=== PATIENT | female | born 1980 | race Two or more races ===

== ENCOUNTER 2017-07-24 22:24 | Emergency (ER) | payer SELFPAY ==
[2017-07-25 00:17] LABS: ABSOLUTE BASOPHILS # (AUTO) 0.1 10^3/uL (0.0-0.2); ABSOLUTE EOSINOPHILS # (AUTO) 0.1 10^3/uL (0.0-0.6); ABSOLUTE LYMPHOCYTES (AUTO) 1.9 10^3/uL (0.5-4.7); ABSOLUTE MONOCYTES (AUTO) 0.6 10^3/uL (0.1-1.4); BASOPHILS % (AUTO) 0.9 % (0-2); EOSINOPHILS % (AUTO) 0.9 % (0-6); HEMATOCRIT 44.2 % (36.0-47.0); LYMPHOCYTES % (AUTO) 29.5 % (13-45); MEAN CORPUSCULAR HEMOGLOBIN 32.7 pg (27.0-33.4); MEAN CORPUSCULAR HGB CONC 33.9 g/dL (32.0-36.0); MEAN CORPUSCULAR VOLUME 97 fl (80-97); MONOCYTES % (AUTO) 8.5 % (3-13); PLATELET COUNT 221 10^3/uL (150-450); RED BLOOD COUNT 4.57 10^6/uL (3.72-5.28); RED CELL DISTRIBUTION WIDTH 12.2 % (11.5-14.0); SEGMENTED NEUTROPHILS % (AUTO) 60.2 % (42-78); TOTAL CELLS COUNTED % (AUTO) 100 %; WHITE BLOOD COUNT 6.6 10^3/uL (4.0-10.5)
[2017-07-25 00:31] LABS: APPEARANCE,URINE CLEAR; BILIRUBIN,URINE NEGATIVE (NEGATIVE); COLOR,URINE YELLOW; GLUCOSE, URINE NEGATIVE (NEGATIVE); KETONES,URINE NEGATIVE (NEGATIVE); LEUKOCYTE ESTERASE,URINE NEGATIVE (NEGATIVE); NITRITE,URINE NEGATIVE (NEGATIVE); PROTEIN,URINE NEGATIVE (NEGATIVE); URINE SPECIFIC GRAVITY 1.013; UROBILINOGEN,URINE NEGATIVE mg/dL (<2.0)
[2017-07-25 00:35] LABS: ALANINE AMINOTRANSFERASE 28 U/L (9-52); ALBUMIN 4.9 g/dL (3.5-5.0); ALKALINE PHOSPHATASE 52 U/L (38-126); ANION GAP 13 (5-19); ASPARTATE AMINO TRANSFERASE 17 U/L (14-36); BILIRUBIN,DIRECT 0.2 mg/dL (0.0-0.4); BILIRUBIN,TOTAL 0.7 mg/dL (0.2-1.3); BLOOD UREA NITROGEN 10 mg/dL (7-20); CALCIUM 9.8 mg/dL (8.4-10.2); CARBON DIOXIDE 26 mmol/L (22-30); CHLORIDE 104 mmol/L (98-107); GLUCOSE 87 mg/dL (75-110); LIPASE 65.8 U/L (23-300); POTASSIUM 4.1 mmol/L (3.6-5.0); SODIUM 142.6 mmol/L (137-145); TOTAL PROTEIN 7.1 g/dL (6.3-8.2)
[2017-07-25] MEDS ORDERED: OXYCODONE-ACETAMINOPHEN 5-325 MG TABLET PO ONE (01:55)
[2017-07-25] MEDS ORDERED: PROMETHAZINE HCL 25 MG TABLET PO ONE (01:55)
--- NOTE | 2017-07-25 01:56 | ER Document Report ---
ED GI/ - General Chief Complaint: Abdominal Pain Stated Complaint: ABOMINAL PAIN Time Seen by Provider: 07/25/17 01:35 Notes: Patient is a 36-year-old female that comes emergency department for chief complaint of pelvic pain that has been sharp and intermittent for the past week , she states that intermittently will improve and then worsened again tonight. She denies vomiting, she reports some radiation to her lower back but not back, she denies fever or chills, vaginal discharge, dysuria. She has an IUD. She does not have history of stones or cyst. Patient also complains of generalized fatigue. She states she feels like she is . - Related Data Allergies/Adverse Reactions: No Known Allergies Allergy (Unverified 07/24/17 22:25) Past Medical History - General Information source: Patient - Social History Smoking Status: Never Smoker Chew tobacco use (# tins/day): No Frequency of alcohol use: None Drug Abuse: None Lives with: Family Family History: Reviewed & Not Pertinent Patient has suicidal ideation: No Patient has homicidal ideation: No - Medical History Medical History: Negative Renal/ Medical History: Denies: Hx Peritoneal Dialysis Surgical Hx: Negative - Immunizations Immunizations up to date: Yes Hx Diphtheria, Pertussis, Tetanus Vaccination: Yes Review of Systems - Review of Systems Constitutional: No symptoms reported EENT: No symptoms reported Cardiovascular: No symptoms reported Respiratory: No symptoms reported Gastrointestinal: See HPI Genitourinary: See HPI Female Genitourinary: See HPI Musculoskeletal: No symptoms reported Skin: No symptoms reported Hematologic/Lymphatic: No symptoms reported Neurological/Psychological: No symptoms reported Physical Exam - Vital signs Vitals: Temp Pulse Resp BP Pulse Ox 98.3 F 73 12 112/64 100 07/24/17 22:34 07/24/17 22:34 07/24/17 22:34 07/24/17 22:34 07/24/17 22:34 Interpretation: Normal - General General appearance: Appears well, Alert - HEENT Head: Normocephalic, Atraumatic Eyes: Normal Pupils: PERRL - Respiratory Respiratory status: No respiratory distress Chest status: Nontender Breath sounds: Normal Chest palpation: Normal - Cardiovascular Rhythm: Regular Heart sounds: Normal auscultation Murmur: No - Abdominal Inspection: Normal Distension: No distension Bowel sounds: Normal Tenderness: Tender - Minimal generalized lower abdominal tenderness, nonspecific , no guarding, no rigidity, no rebound tenderness Organomegaly: No organomegaly - Back Back: Normal, Nontender - Extremities General upper extremity: Normal inspection, Nontender, Normal color, Normal ROM , Normal temperature General lower extremity: Normal inspection, Nontender, Normal color, Normal ROM , Normal temperature, Normal weight bearing. No: Payam's sign - Neurological Neuro grossly intact: Yes Cognition: Normal Orientation: AAOx4 Hamilton Coma Scale Eye Opening: Spontaneous Hamilton Coma Scale Verbal: Oriented Hamilton Coma Scale Motor: Obeys Commands Hamilton Coma Scale Total: 15 Speech: Normal Motor strength normal: LUE, RUE, LLE, RLE Sensory: Normal - Psychological Associated symptoms: Normal affect, Normal mood - Skin Skin Temperature: Warm Skin Moisture: Dry Skin Color: Normal Course - Re-evaluation Re-evalutation: Patient well-appearing on exam, unremarkable exam with only minimal generalized lower abdominal tenderness. Unremarkable vital signs. CBC, chemistry, urinalysis, hCG are all unremarkable and negative. Ultrasound performed, shows normal IUD placement, no free fluid or overt abnormalities. TSH is in the normal range. Discussed with patient, she declined a pelvic exam, I do suspect based on her symptoms that this is most likely a bowel source but no evidence of acute abdomen on exam or workup. Discussed recommendations, follow-up with GI, return precautions. Patient and significant other state satisfaction and agreement. - Vital Signs Vital signs: Temp Pulse Resp BP Pulse Ox 98.4 F 76 16 110/70 100 07/25/17 03:53 07/25/17 03:53 07/25/17 03:53 07/25/17 03:53 07/25/17 03:53 - Laboratory Result Diagrams: 07/24/17 23:58 07/24/17 23:58 Discharge - Discharge Clinical Impression: Lower abdominal pain Condition: Stable Disposition: HOME, SELF-CARE Additional Instructions: Your laboratory workup including blood counts, urine, and thyroid screening tests are normal. Your ultrasound shows the IUD in appropriate position with no obvious abnormalities in the pelvis. I suspect that your symptoms are coming from your bowel. I recommend that you take the Colace for the next 3 days or so, take the Bentyl if needed for pain, if symptoms continue follow-up with the gastroenterology referral. Return if you worsen including severe worsening pain, vomiting, temperature 100.4 or greater, swelling/distention of the abdomen, bleeding, or any other concerning symptoms. Prescriptions: Dicyclomine HCl [Bentyl 20 mg Tablet] 20 mg PO QID PRN #40 tablet PRN Reason: Docusate Sodium [Colace 100 mg Capsule] 100 mg PO ASDIR PRN #30 capsule PRN Reason: Referrals: COLT ROSARIO MD [ACTIVE STAFF] - Follow up in 1 week
[2017-07-25] MEDS ORDERED: IBUPROFEN 600 MG TABLET PO ONE (02:13)
--- NOTE | 2017-07-25 03:13 | RADIOLOGY REPORT (SQ) ---
EXAM DESCRIPTION: U/S NON OB PEL TV W/DOPPLER CLINICAL HISTORY: 36 years Female, pelvic pain; eval for cysts and IUD placement COMPARISON: None. TECHNIQUE: Complete pelvic ultrasound with transvaginal imaging. FINDINGS: The uterus measures 10.9 x 5.8 x 6.2 cm. Cervical length of 3.6 cm and closed. Endometrial thickness of 9.5 mm. IUD visualized in the upper portion of the uterus in appropriate position. No myometrial abnormalities. The ovaries are not identified bilaterally. No free pelvic fluid. IMPRESSION: 1. No sonographic abnormality identified. 2. IUD in appropriate position within the upper/fundal portion of the uterus. 3. The ovaries are not identified bilaterally.
[2017-07-25 03:55] VITALS: BP 110/70
== END 2017-07-25 03:50 | disposition home or self-care (01) ==
LOC: ER 22:24
DX: R10.30 Lower abdominal pain, unspecified (principal); R10.2 Pelvic and perineal pain; Z97.5 Presence of (intrauterine) contraceptive device
CPT/HCPCS: 36415; 76830; 80053; 81001; 81025; 83690; 84443; 85025; 93976; 99284

== ENCOUNTER 2017-11-02 21:29 | Emergency (ER) | payer MEDICAID ==
[2017-11-03 00:52] VITALS: BP 102/53
--- NOTE | 2017-11-03 00:59 | ER Document Report ---
ED General - General Chief Complaint: Fever Stated Complaint: BODY ACHES/FEVER Time Seen by Provider: 11/03/17 00:13 Mode of Arrival: Ambulatory Information source: Patient Notes: 37-year-old female presents with complaints of fever. pt denies any nausea vomiting, cough, shortness of breath, headache, nasal drainage. she notes fevers since , states it returns when the motrin wears off and then ehr whole body hurts including face and low back. TRAVEL OUTSIDE OF THE [place] IN LAST 30 DAYS: No - HPI Onset: Last week Onset/Duration: Persistent Quality of pain: Achy Severity: Mild Pain Level: 1 Associated symptoms: Body/muscle aches, Fever Exacerbated by: Denies Relieved by: Other - motrin Similar symptoms previously: No Recently seen / treated by doctor: Yes - Related Data Allergies/Adverse Reactions: No Known Allergies Allergy (Unverified 07/24/17 22:25) Past Medical History - Social History Smoking Status: Never Smoker Cigarette use (# per day): No Chew tobacco use (# tins/day): No Smoking Education Provided: No Frequency of alcohol use: None Drug Abuse: None Family History: Reviewed & Not Pertinent Patient has suicidal ideation: No Patient has homicidal ideation: No Renal/ Medical History: Denies: Hx Peritoneal Dialysis - Immunizations Immunizations up to date: Yes Hx Diphtheria, Pertussis, Tetanus Vaccination: Yes Review of Systems - Review of Systems Notes: REVIEW OF SYSTEMS: CONSTITUTIONAL : Admits to fever EENT: Denies eye, ear, throat, or mouth pain or symptoms. Denies nasal or sinus congestion or discharge. Denies throat, tongue, or mouth swelling or difficulty swallowing. CARDIOVASCULAR: Denies chest pain. Denies palpitations or racing or irregular heart beat. Denies ankle edema. RESPIRATORY: Denies cough, cold, or chest congestion. Denies shortness of breath, difficulty breathing, or wheezing. GASTROINTESTINAL: Denies abdominal pain or distention. Denies nausea, vomiting , or diarrhea. Denies blood in vomitus, stools, or per rectum. Denies black, tarry stools. Denies constipation. GENITOURINARY: Denies difficulty urinating, painful urination, burning, frequency, blood in urine, or discharge. FEMALE GENITOURINARY: Denies vaginal bleeding, heavy or abnormal periods, irregular periods. Denies vaginal discharge or odor. MUSCULOSKELETAL: Admits to body aches SKIN: Denies rash, lesions or sores. HEMATOLOGIC : Denies easy bruising or bleeding. LYMPHATIC: Denies swollen, enlarged glands. NEUROLOGICAL: Denies confusion or altered mental status. Denies passing out or loss of consciousness. Denies dizziness or lightheadedness. Denies headache. Denies weakness or paralysis or loss of use of either side. Denies problems with gait or speech. Denies sensory loss, numbness, or tingling. Denies seizures. PSYCHIATRIC: Denies anxiety or stress. Denies depression, suicidal ideation, or homicidal ideation. ALL OTHER SYSTEMS REVIEWED AND NEGATIVE. PHYSICAL EXAMINATION: GENERAL: Well-appearing, well-nourished and in no acute distress. HEAD: Atraumatic, normocephalic. EYES: Pupils equal round and reactive to light, extraocular movements intact, conjunctiva are normal. ENT: Nares patent, oropharynx clear without exudates. Moist mucous membranes. NECK: Normal range of motion, supple without lymphadenopathy LUNGS: Breath sounds clear to auscultation bilaterally and equal. No wheezes rales or rhonchi. HEART: Regular rate and rhythm without murmurs ABDOMEN: Soft, nontender, nondistended abdomen. No guarding, no rebound. No masses appreciated. Female : deferred Musculoskeletal: Normal range of motion, no pitting or edema. No cyanosis. NEUROLOGICAL: Cranial nerves grossly intact. Normal speech, normal gait. Normal sensory, motor exams PSYCH: Normal mood, normal affect. SKIN: Warm, Dry, normal turgor, no rashes or lesions noted. Dictation was performed using [employer] voice recognition software Physical Exam - Vital signs Vitals: Temp Pulse Resp BP Pulse Ox 99.9 F 82 18 116/64 98 11/02/17 21:37 11/02/17 21:37 11/02/17 21:37 11/02/17 21:37 11/02/17 21:37 Course - Re-evaluation Re-evalutation: 11/03/17 01:02 Patient is completely asymptomatic at this point, it is confusing as to the cause of her fever since , she does note some low back pain which may be a sign of UTI versus Ronen urinalysis pending 11/03/17 01:51 Urinalysis noted no significant abnormality, patient's presentation only notes frontal sinus tenderness, therefore I will treat this as sinusitis, she has no signs of meningitis overall looks well is in no distress I have very low suspicion of fever unknown origin such as cancer given that she has no lymph node enlargement and up until a few days ago was completely well-appearing no distress 11/03/17 01:52 After performing a Medical Screening Examination, I estimate there is LOW risk for ACUTE GLAUCOMA, TEMPORAL ARTERITIS, MENINGITIS, INCRANIAL HEMORRHAGE, or ISCHEMIC STROKE thus I consider the discharge disposition reasonable. I have reevaluated this patient multiple times and no significant life threatening changes are noted. The patient and I have discussed the diagnosis and risks, and we agree with discharging home with close follow-up with the understanding that symptoms and presentations can change. We also discussed returning to the Emergency Department immediately if new or worsening symptoms occur. We have discussed the symptoms which are most concerning (e.g., changing or worsening symptoms, new numbness or weakness, vomiting, fever) that necessitate immediate return. - Vital Signs Vital signs: Temp Pulse Resp BP Pulse Ox 97.6 F 83 16 102/53 L 99 11/03/17 00:52 11/03/17 00:52 11/03/17 00:52 11/03/17 00:52 11/03/17 00:52 - Laboratory Laboratory results interpreted by me: 11/03/17 01:20 Urine Blood SMALL H Ur Leukocyte Esterase TRACE H Discharge - Discharge Clinical Impression: Sinusitis Qualifiers: Sinusitis location: frontal Chronicity: acute Recurrence: not specified as recurrent Qualified Code(s): J01.10 - Acute frontal sinusitis, unspecified Headache Qualifiers: Headache type: unspecified Headache chronicity pattern: unspecified pattern Intractability: not intractable Qualified Code(s): R51 - Headache Condition: Stable Disposition: HOME, SELF-CARE Instructions: Fever ([facility]) Prescriptions: Amoxicillin 875 mg PO BID #20 tablet Referrals: KUMAR MERCEDES MD [Primary Care Provider] - Follow up tomorrow
[2017-11-03 01:42] LABS: APPEARANCE,URINE CLEAR; BILIRUBIN,URINE NEGATIVE (NEGATIVE); COLOR,URINE COLORLESS; GLUCOSE, URINE NEGATIVE (NEGATIVE); KETONES,URINE NEGATIVE (NEGATIVE); LEUKOCYTE ESTERASE,URINE TRACE (NEGATIVE); NITRITE,URINE NEGATIVE (NEGATIVE); PROTEIN,URINE NEGATIVE (NEGATIVE); URINE SPECIFIC GRAVITY 1.002; UROBILINOGEN,URINE NEGATIVE mg/dL (<2.0)
[2017-11-03] MEDS ORDERED: AMOXICILLIN TRIHYDRATE 500 MG CAPSULE PO ONE (01:51)
== END 2017-11-03 02:00 | disposition home or self-care (01) ==
LOC: ER 21:29
DX: J01.10 Acute frontal sinusitis, unspecified (principal); R50.9 Fever, unspecified; R51 Headache; M54.5 Low back pain
CPT/HCPCS: 81001; 81025; 99283

== ENCOUNTER → 2017-11-02 | Outpatient (CLI) | payer MEDICAID | LOC: OD 15:43 | PROVIDERS: ATTEND Nurse Practitioner Acute Care | DX: R50.9 Fever, unspecified (principal) | CPT/HCPCS: 87086; 87088; 87186 ==

== ENCOUNTER → 2018-08-11 | Outpatient (CLI) | payer BC, MEDICAID ==
[2018-08-11 11:30] LABS: ABSOLUTE LYMPHOCYTES (AUTO) 1.6 10^3/uL (0.5-4.7); ABSOLUTE MONOCYTES (AUTO) 0.4 10^3/uL (0.1-1.4); ABSOLUTE NEUT (AUTO) 2.4 10^3/uL (1.7-8.2); BASOPHILS % (AUTO) 0.9 % (0-2); EOSINOPHILS % (AUTO) 0.9 % (0-6); HEMATOCRIT 41.3 % (36.0-47.0); HEMOGLOBIN 14.5 g/dL (12.0-15.5); LYMPHOCYTES % (AUTO) 35.3 % (13-45); MEAN CORPUSCULAR VOLUME 94 fl (80-97); MONOCYTES % (AUTO) 8.4 % (3-13); PLATELET COUNT 214 10^3/uL (150-450); RED BLOOD COUNT 4.38 10^6/uL (3.72-5.28); SEGMENTED NEUTROPHILS % (AUTO) 54.5 % (42-78); TOTAL CELLS COUNTED % (AUTO) 100 %; WHITE BLOOD COUNT 4.5 10^3/uL (4.0-10.5)
[2018-08-11 11:50] LABS: FASTING GAC 82 (<110)
--- NOTE | 2018-08-11 12:20 | RADIOLOGY REPORT (SQ) ---
EXAM DESCRIPTION: LUMBAR SPINE COMPLETE COMPLETED DATE/TIME: 08/11/2018 11:00 am REASON FOR STUDY: DORSOPATHY E11.9 TYPE 2 DIABETES MELLITUS WITHOUT COMPLICATIONS M53.9 DORSOPATHY , UNSPECIFIED COMPARISON: None. NUMBER OF VIEWS: Five views including obliques. TECHNIQUE: AP, lateral, oblique, and sacral radiographic images acquired of the lumbar spine. LIMITATIONS: None. FINDINGS: MINERALIZATION: Normal. SEGMENTATION: Normal. No transitional anatomy. ALIGNMENT: Normal. VERTEBRAE: Maintained height. No fracture or worrisome bone lesion. DISCS: Preserved height. No significant osteophytes or end plate irregularity. POSTERIOR ELEMENTS: Pedicles and facets are intact. No pars defect or posterior arch defects. HARDWARE: None in the spine. PARASPINAL SOFT TISSUES: Normal. PELVIS: Intact as visualized. No fractures or worrisome bone lesions. SI joints intact. OTHER: No other significant finding. IMPRESSION: NORMAL 5 VIEW LUMBAR SPINE. TECHNICAL DOCUMENTATION: JOB ID: [id number] [employer]- All Rights Reserved Reading location - IP/workstation name: [email or web address]
[2018-08-11 13:11] LABS: ALANINE AMINOTRANSFERASE 24 U/L (9-52); ALBUMIN 4.2 g/dL (3.5-5.0); ALKALINE PHOSPHATASE 64 U/L (38-126); ANION GAP 9 (5-19); ASPARTATE AMINO TRANSFERASE 24 U/L (14-36); BILIRUBIN,DIRECT 0.2 mg/dL (0.0-0.4); BLOOD UREA NITROGEN 12 mg/dL (7-20); CALCIUM 9.3 mg/dL (8.4-10.2); CARBON DIOXIDE 25 mmol/L (22-30); CHLORIDE 106 mmol/L (98-107); CHOLESTEROL 139.99 mg/dL (0-200); GLUCOSE 82 mg/dL (75-110); IRON 197.6 ug/dL (37-170); POTASSIUM 4.3 mmol/L (3.6-5.0); SODIUM 140.1 mmol/L (137-145); TOTAL PROTEIN 7.1 g/dL (6.3-8.2); TRIGLYCERIDES 74 mg/dL (<150)
[2018-08-11 13:23] LABS: DIRECT LDL 85 mg/dL (<100)
[2018-08-11 13:26] LABS: GLUCOSE,FASTING 82 mg/dL (<110)
== END ==
LOC: OD 09:56
PROVIDERS: ATTEND Internal Medicine
DX: Z00.00 Encounter for general adult medical examination without abnormal findings (principal); E11.9 Type 2 diabetes mellitus without complications; K12.1 Other forms of stomatitis; E55.9 Vitamin D deficiency, unspecified; M53.9 Dorsopathy, unspecified
CPT/HCPCS: 36415; 72110; 80053; 80061; 82306; 82951; 83540; 84443; 85025; 86038; 86695

== ENCOUNTER 2018-08-23 09:20 | Day surgery (SDC) | payer BC ==
[~2018-08-23 09:20] MED LIST: PROPOFOL INJ 200 MG/20 ML VIAL IV ONE
[2018-08-23 11:26] VITALS: BP 96/63
--- NOTE | 2018-08-23 12:38 | Operative Report ---
Operative Report DATE OF SURGERY: 08/23/18 Operative Report: The risks, benefits and alternatives of the procedure including the risk of bleeding, perforation requiring surgery have been explained to the patient in detail and informed consent has been obtained. Patient is placed in a left, lateral decubital position. Timeout was called. Propofol medication is administered. Rectal examination is done which did not reveal any masses, tears or fissures. An Olympus videoscope was introduced into the patient's rectum. The scope was then carefully advanced all the way to the cecum. The cecum was identified by the usual anatomical landmarks including the ileocecal valve as well as the appendiceal office. Photodocumentation is obtained. The scope was then sequentially pulled back via the various segments of the colon including the ascending colon, hepatic flexure, transverse colon, splenic flexure, descend ing colon and finally into the rectosigmoid portions of the colon. Retroflexion maneuver was performed. PREOPERATIVE DIAGNOSIS: Rectal bleeding POSTOPERATIVE DIAGNOSIS: Internal hemorrhoids OPERATION: Diagnostic colonoscopy SURGEON: COLT ROSARIO ANESTHESIA: LMAC TISSUE REMOVED OR ALTERED: None. COMPLICATIONS: None. ESTIMATED BLOOD LOSS: None. INTRAOPERATIVE FINDINGS: As noted above. PROCEDURE: Patient tolerated the procedure well. No immediate postprocedure complications are noted. Patient discharged in good condition. Discharge date 08/23/2018. Discharge diet: Regular. Discharge activity: Regular. 2-3-week follow-up to discuss findings. Patient is instructed to call the office or proceed to the emergency room should there be any further problems or questions.
== END 2018-08-23 11:20 | disposition home or self-care (01) ==
LOC: END 09:20
PROVIDERS: ATTEND Internal Medicine Gastroenterology
DX: K64.8 Other hemorrhoids (principal); K62.5 Hemorrhage of anus and rectum; Z80.0 Family history of malignant neoplasm of digestive organs; R01.1 Cardiac murmur, unspecified; Z79.899 Other long term (current) drug therapy
CPT/HCPCS: 45378; J2704; 811

== ENCOUNTER → 2019-03-19 | Outpatient (CLI) | payer BC ==
[2019-03-19 11:23] LABS: ABSOLUTE LYMPHOCYTES (AUTO) 1.4 10^3/uL (0.5-4.7); ABSOLUTE MONOCYTES (AUTO) 0.5 10^3/uL (0.1-1.4); BASOPHILS % (AUTO) 0.9 % (0-2); EOSINOPHILS % (AUTO) 0.8 % (0-6); HEMATOCRIT 43.1 % (36.0-47.0); HEMOGLOBIN 14.9 g/dL (12.0-15.5); LYMPHOCYTES % (AUTO) 28.5 % (13-45); MEAN CORPUSCULAR HEMOGLOBIN 32.7 pg (27.0-33.4); MEAN CORPUSCULAR HGB CONC 34.7 g/dL (32.0-36.0); MEAN CORPUSCULAR VOLUME 94 fl (80-97); PLATELET COUNT 205 10^3/uL (150-450); RED BLOOD COUNT 4.57 10^6/uL (3.72-5.28); RED CELL DISTRIBUTION WIDTH 12.8 % (11.5-14.0); SEGMENTED NEUTROPHILS % (AUTO) 59.8 % (42-78); TOTAL CELLS COUNTED % (AUTO) 100 %
[2019-03-19 11:46] LABS: ALBUMIN 4.5 g/dL (3.5-5.0); ALKALINE PHOSPHATASE 69 U/L (38-126); ANION GAP 11 (5-19); ASPARTATE AMINO TRANSFERASE 61 U/L (14-36); BILIRUBIN,DIRECT 0.1 mg/dL (0.0-0.4); BILIRUBIN,TOTAL 1.1 mg/dL (0.2-1.3); BLOOD UREA NITROGEN 13 mg/dL (7-20); CALCIUM 9.5 mg/dL (8.4-10.2); CARBON DIOXIDE 26 mmol/L (22-30); CHLORIDE 106 mmol/L (98-107); GLUCOSE 79 mg/dL (75-110); POTASSIUM 4.2 mmol/L (3.6-5.0); TOTAL PROTEIN 7.6 g/dL (6.3-8.2)
== END ==
LOC: OD 10:41
PROVIDERS: ATTEND Family Medicine
DX: R53.83 Other fatigue (principal)
CPT/HCPCS: 36415; 80053; 82306; 82607; 84443; 85025

== ENCOUNTER → 2019-03-23 | Outpatient (CLI) | payer BC | LOC: OD 12:44 | PROVIDERS: ATTEND Family Medicine | DX: E34.9 Endocrine disorder, unspecified (principal); R94.5 Abnormal results of liver function studies; J02.9 Acute pharyngitis, unspecified; R10.13 Epigastric pain | CPT/HCPCS: 36415; 80074; 82150; 82670; 82977; 83001; 83002; 83690; 84144; 86256; 86663; 86664; 86665 ==

== ENCOUNTER → 2019-12-08 | Outpatient (CLI) | payer BC | LOC: OD 10:44 | PROVIDERS: ATTEND Otolaryngology | DX: J30.9 Allergic rhinitis, unspecified (principal) | CPT/HCPCS: 36415; 82785; 86003 ==